=== PATIENT | male | born 1975 | race Caucasian/White ===

== ENCOUNTER → 2020-06-08 10:13 | Outpatient (BNVA) | payer SELFPAY | PROVIDERS: Family Provider General Practice; PCP Nurse Practitioner Family; Referring Provider Nurse Practitioner Family; Visit Provider Urology | DX: R79.89 Other specified abnormal findings of blood chemistry (principal) | CPT/HCPCS: 81001 ==

== ENCOUNTER → 2021-01-13 07:48 | Outpatient (BNVA) | payer OTHER, SELFPAY | PROVIDERS: Family Provider General Practice; PCP Nurse Practitioner Family; Visit Provider Urology | DX: E34.9 Endocrine disorder, unspecified (principal); N52.1 Erectile dysfunction due to diseases classified elsewhere | CPT/HCPCS: 81003; 84403 ==

== ENCOUNTER 2021-03-12 21:23 | Emergency (ER) | payer OTHER, SELFPAY ==
[2021-03-12 22:37] VITALS: BP 137/88; PULSE 110; RESP 16; TEMP 37; O2SAT 94; BMI 31.9
--- NOTE | 2021-03-12 22:46 | PC.NURSE ---
upon further assessment pt is not SI or HI. Pt states he does want to hurt people and hurt himself but he does not want anyone to . Pt states he just wanna fight. I have this aggression!
--- NOTE | 2021-03-12 23:24 | PC.NURSE ---
pt becoming very aggressive with staff, demanding to see his , refusing insulin or providing blood for testing. Security called, after pt hold status verified, pt allowed to leave the dept with security and staff. After leaving the dept, pt began to kick and throw waiting room furniture and kick entrance door. Pt seen entering parking without further difficulties or complaints
[2021-03-12 23:33] LABS: Amphetamines Screen Urine Negative (Negative); Barbiturates Screen Urine Negative (Negative); Benzodiazepines Screen Urine Negative (Negative); Cocaine Screen Urine Negative (Negative); Opiate Screen Urine Negative (Negative); PCP Screen Urine Negative (Negative); THC Screen Urine Negative (Negative)
[2021-03-12 23:46] LABS: Bilirubin Urine Neg (Negative); Blood Urine Neg (Negative); Glucose Urine UA 4+ (Normal); Ketones Urine Negative (Negative); Leukocyte Esterase Urine Negative (Negative); Nitrate Urine Negative (Negative); Protein Urine Neg (Negative); Specific Gravity, Urine 1.015 (1.005-1.030); Urine Appearance Clear (CLEAR); Urine Color Straw (Yellow); Urobilinogen Urine Norm (Negative); pH Urine 5 (5-7)
[2021-03-12 23:48] LABS: Add Urine Culture? No
[2021-03-13 14:09] LABS: Glucose Point of Care 387 mg/dL (70-110)
== END 2021-03-12 23:25 | disposition left against medical advice (07) ==
PROVIDERS: Physician Assistant; PCP Nurse Practitioner Family
DX: Z53.21 Procedure and treatment not carried out due to patient leaving prior to being seen by health care provider (principal)
CPT/HCPCS: 36416; 80306; 81001; 82962